=== PATIENT | male | born 1985 | race Caucasian/White ===

== ENCOUNTER 2022-12-28 11:26 | Emergency (ER) | payer SELFPAY ==
[2022-12-28] MEDS ORDERED: Bacitracin 1 PK ONE (13:10)
== END 2022-12-28 13:13 | disposition home or self-care (01) ==
LOC: CSHERS 11:26
DX: S81.812A Laceration without foreign body, left lower leg, initial encounter (principal); I10 Essential (primary) hypertension; F17.210 Nicotine dependence, cigarettes, uncomplicated; W22.8XXA Striking against or struck by other objects, initial encounter
CPT/HCPCS: 12002